=== PATIENT | male | born 1995 | race Caucasian/White ===

== ENCOUNTER → 2023-05-05 13:22 | Outpatient (CLI) | payer BC, SELFPAY ==
[2023-05-05 13:51] LABS: Add Manual Diff / Slide Review NO; Basophils Absolute Auto 0 /uL (0-100); Basophils Percent Auto 0.6 % (0-2); Eosinophils Absolute Auto 0 /uL (0-450); Eosinophils Percent Auto 0.9 % (2-4); Hematocrit 46.1 % (41-53); Hemoglobin 15.8 g/dL (13.5-17.5); Lymphocytes Absolute Auto 1800 /uL (1100-4500); Mean Corpuscular HGB Conc 34.2 % (30-36); Mean Corpuscular Hemoglobin 29.8 PG (26-34); Monocytes Absolute Auto 500 /uL (0-900); Monocytes Percent Auto 9.9 % (3-14); Neutrophils Absolute Auto 2700 /uL (1500-7000); Neutrophils Percent Auto 52.6 % (50-75); Platelet Count 209 X10^3/uL (150-400); Red Blood Cell Count 5.29 X10^6/uL (4.5-5.9); Red Cell Distribution Width 13.4 % (11.6-14.8); White Blood Cell Count 5.1 X10^3/uL (4.5-11.0)
[2023-05-05 14:44] LABS: Prolactin 10.8 ng/mL (3.7-17.9)
[2023-05-05 14:58] LABS: Prostate Specific Antigen 0.533 ng/mL (0.10-4.00)
[2023-05-05 17:55] LABS: Follicle Stimulating Hormone 1.38 mIU/mL
[2023-05-05 18:11] LABS: Estradiol, Total 33.5 pg/mL
[2023-05-06 08:10] LABS: Sex Hormone Binding Globulin 30.8 nmol/L (16.5-55.9)
[2023-05-16 13:58] LABS: Percent Free Testosterone 3.81 % (1.50-4.20); Testosterone Free 21.48 ng/dL (5.00-21.00); Testosterone Total 563.9 ng/dL (264.0-916.0)
== END ==
PROVIDERS: Referring Provider Student in an Organized Health Care Education/Training Program; Visit Provider Student in an Organized Health Care Education/Training Program
DX: E29.1 Testicular hypofunction (principal)
CPT/HCPCS: 36415; 82670; 83001; 83002; 84146; 84153; 84270; 84402; 84403; 85025